=== PATIENT | female | born 1930 | race Asian ===

== ENCOUNTER 2017-10-20 17:16 | Observation (INO) | payer MEDICARE, OTHER ==
[~2017-10-20] VITALS: Ht 154.9 cm; Wt 43.7 kg
[2017-10-20] MEDS ORDERED: INSU100V8 SQ (18:07)
[2017-10-20] MEDS ORDERED: AMLO5TAB2 PO (18:09)
[2017-10-20] MEDS ORDERED: OMEP10CA4 PO (18:09)
[2017-10-20] MEDS ORDERED: CLOP75TA52 PO (18:09)
[2017-10-20 18:11] LABS: BASOPHILS # (AUTO) 0.03 x10^3/uL (0-0.1); BASOPHILS % (AUTO) 1 % (0-1); EOSINOPHILS # (AUTO) 0.03 x10^3/uL (0-0.4); EOSINOPHILS % (AUTO) 1 % (1-7); LYMPHOCYTES # (AUTO) 1.85 x10^3/uL (1-3.4); LYMPHOCYTES % (AUTO) 32 % (22-44); MD NO; MEAN CORPUSCULAR HEMOGLOBIN 30.9 pg (27.0-34.8); MEAN CORPUSCULAR HGB CONC 33.6 g/dL (32.4-35.8); MEAN CORPUSCULAR VOLUME 92.1 fL (80-100); MEAN PLATELET VOLUME 10.5 fL (7.4-10.4); MONOCYTES # (AUTO) 0.35 x10^3/uL (0.2-0.8); MONOCYTES % (AUTO) 6 % (2-9); NEUTROPHILS # (AUTO) 3.61 x10^3/uL (1.8-6.8); NEUTROPHILS % (AUTO) 62 % (42-75); PLATELET COUNT 133 x10^3/uL (130-400); RED BLOOD COUNT 4.49 x10^6/uL (3.82-5.3); RED CELL DISTRIBUTION WIDTH 13.9 % (9.6-15.2)
[2017-10-20 18:22] LABS: ALBUMIN 3.9 g/dL (3.4-5.0); ANION GAP 8 mmol/L (5-15); CALCIUM 9.3 mg/dL (8.5-10.1); CHLORIDE 109 mmol/L (98-107); CREATININE 0.88 mg/dL (0.55-1.02)
[2017-10-20 18:23] LABS: ACETAMINOPHEN < 2 mcg/mL (10-30); SALICYLATE LEVEL < 1.7 mg/dL (2.8-20.0)
[2017-10-20 20:24] LABS: MICROSCOPIC NOT IND
[2017-10-20 20:28] LABS: CULTURE INDICATED? YES
[2017-10-20] MEDS ORDERED: ONDANSETRON ODT 4 MG PO PRN (20:30)
[2017-10-20] MEDS ORDERED: DIPHENHYDRAMINE 50 MG CAPSULE PO PRN (20:30)
[2017-10-20] MEDS ORDERED: TEMAZEPAM 15 MG CAPSULE PO PRN (20:30)
[2017-10-20] MEDS ORDERED: HALOPERIDOL 5 MG TABLET PO PRN (20:30)
[2017-10-20] MEDS ORDERED: DOCUSATE 100 MG CAPSULE PO PRN (20:30)
[2017-10-20 20:34] LABS: AMPHETAMINE SCREEN, URINE Negative (Negative); BARBITURATE SCREEN, URINE Negative (Negative); BENZODIAZEPINE SCREEN, URINE Negative (Negative); CANNABINOID SCREEN, URINE Negative (Negative); COCAINE SCREEN, URINE Negative (Negative); METHADONE SCREEN, URINE Negative (Negative); OPIATE SCREEN, URINE Negative (Negative)
[2017-10-21] MEDS: NITROFURANTOIN (MACROBID) 100 MG CAPSULE PO SCH ×2 (00:12→08:03)
[2017-10-21 05:06] LABS: BASOPHILS # (AUTO) 0.03 x10^3/uL (0-0.1); BASOPHILS % (AUTO) 1 % (0-1); EOSINOPHILS # (AUTO) 0.06 x10^3/uL (0-0.4); EOSINOPHILS % (AUTO) 1 % (1-7); LYMPHOCYTES % (AUTO) 37 % (22-44); MD NO; MEAN CORPUSCULAR HEMOGLOBIN 31.3 pg (27.0-34.8); MEAN CORPUSCULAR HGB CONC 34.2 g/dL (32.4-35.8); MEAN CORPUSCULAR VOLUME 91.5 fL (80-100); MEAN PLATELET VOLUME 10.3 fL (7.4-10.4); MONOCYTES # (AUTO) 0.32 x10^3/uL (0.2-0.8); MONOCYTES % (AUTO) 6 % (2-9); NEUTROPHILS # (AUTO) 3.12 x10^3/uL (1.8-6.8); NEUTROPHILS % (AUTO) 55 % (42-75); PLATELET COUNT 126 x10^3/uL (130-400); RED BLOOD COUNT 4.22 x10^6/uL (3.82-5.3); RED CELL DISTRIBUTION WIDTH 14.1 % (9.6-15.2)
[2017-10-21 05:16] LABS: ANION GAP 8 mmol/L (5-15); CALCIUM 8.7 mg/dL (8.5-10.1); CHLORIDE 105 mmol/L (98-107)
[2017-10-21 05:18] LABS: CREATININE 0.68 mg/dL (0.55-1.02)
[2017-10-21] MEDS ORDERED: NITROFURANTOIN (MACROBID) 100 MG CAPSULE ONE ×2 (07:57→20:41)
[2017-10-21] MEDS ORDERED: OMEPRAZOLE 20 MG CAPSULE.DR ONE (07:57)
[2017-10-21] MEDS ORDERED: CLOPIDOGREL 75 MG TABLET ONE (07:57)
[2017-10-21] MEDS ORDERED: AMLODIPINE 5 MG TABLET ONE (07:57)
[2017-10-21] MEDS: AMLODIPINE 5 MG TABLET PO SCH (08:02)
[2017-10-21] MEDS: CLOPIDOGREL 75 MG TABLET PO SCH (08:03)
[2017-10-21] MEDS: OMEPRAZOLE 10 MG CAPSULE.DR PO SCH (08:33)
[2017-10-21] MEDS ORDERED: INSULIN REGULAR 100 UNITS/ML, 3ML VIAL ONE (13:22)
[2017-10-21] MEDS: INSULIN LISPRO 100 UNITS/ML, PEN SQ-INSULIN SCH ×2 (13:26→21:46)
[2017-10-22] MEDS: INSULIN LISPRO 100 UNITS/ML, PEN SQ-INSULIN SCH ×4 (07:00→20:18)
[2017-10-22] MEDS ORDERED: NITROFURANTOIN (MACROBID) 100 MG CAPSULE ONE (07:42)
[2017-10-22] MEDS ORDERED: AMLODIPINE 5 MG TABLET ONE (07:42)
[2017-10-22] MEDS ORDERED: CLOPIDOGREL 75 MG TABLET ONE (07:43)
[2017-10-22] MEDS ORDERED: OMEPRAZOLE 20 MG CAPSULE.DR ONE (07:43)
[2017-10-22] MEDS: NITROFURANTOIN (MACROBID) 100 MG CAPSULE PO SCH ×3 (09:00→20:22)
[2017-10-22] MEDS: AMLODIPINE 5 MG TABLET PO SCH (09:35)
[2017-10-22] MEDS: OMEPRAZOLE 10 MG CAPSULE.DR PO SCH (09:35)
[2017-10-22] MEDS: CLOPIDOGREL 75 MG TABLET PO SCH (09:35)
[2017-10-22 20:24] VITALS: BP 141/68
[2017-10-22 21:14] VITALS: BP 141/68
[2017-10-23 01:57] VITALS: BP 150/61
[2017-10-23 06:26] VITALS: BP 117/61
[2017-10-23] MEDS: INSULIN LISPRO 100 UNITS/ML, PEN SQ-INSULIN SCH ×4 (07:00→20:16)
[2017-10-23] MEDS: CLOPIDOGREL 75 MG TABLET PO SCH (09:09)
[2017-10-23] MEDS: OMEPRAZOLE 10 MG CAPSULE.DR PO SCH (09:09)
[2017-10-23] MEDS: NITROFURANTOIN (MACROBID) 100 MG CAPSULE PO SCH ×2 (09:09→20:14)
[2017-10-23] MEDS: AMLODIPINE 5 MG TABLET PO SCH (09:09)
[2017-10-23] MEDS: ACETAMINOPHEN 325 MG TABLET PO PRN (10:05)
[2017-10-23] MEDS: ENOXAPARIN 40 MG/0.4 ML SQ SCH (11:14)
[2017-10-23 11:42] LABS: ANION GAP 6 mmol/L (5-15); CALCIUM 8.6 mg/dL (8.5-10.1); CHLORIDE 105 mmol/L (98-107); CREATININE 0.77 mg/dL (0.55-1.02)
[2017-10-23 12:08] LABS: FOLATE LEVEL 15.6 ng/mL (3.1-17.5); THYROID STIMULATING HORMONE 0.892 mIU/L (0.358-3.740)
[2017-10-23 13:00] VITALS: BP 108/40
[2017-10-23] MEDS ORDERED: POTASSIUM CHLORIDE 20 MEQ TAB.ER.PRT PO ONE (14:00)
[2017-10-23 19:54] VITALS: BP 124/67
[2017-10-24 01:28] VITALS: BP 109/61
[2017-10-24 06:35] VITALS: BP 106/61
[2017-10-24] MEDS: INSULIN LISPRO 100 UNITS/ML, PEN SQ-INSULIN SCH ×4 (07:00→21:14)
[2017-10-24] MEDS: AMLODIPINE 5 MG TABLET PO SCH (07:35)
[2017-10-24] MEDS: NITROFURANTOIN (MACROBID) 100 MG CAPSULE PO SCH ×2 (08:20→21:13)
[2017-10-24] MEDS: OMEPRAZOLE 10 MG CAPSULE.DR PO SCH (08:20)
[2017-10-24] MEDS: CLOPIDOGREL 75 MG TABLET PO SCH (08:20)
[2017-10-24] MEDS: ENOXAPARIN 40 MG/0.4 ML SQ SCH (11:43)
[2017-10-24 12:50] VITALS: BP 109/61
[2017-10-24 19:33] VITALS: BP 104/66
[2017-10-25 01:40] VITALS: BP 105/62
[2017-10-25] MEDS: INSULIN LISPRO 100 UNITS/ML, PEN SQ-INSULIN SCH ×4 (07:00→21:01)
[2017-10-25] MEDS: AMLODIPINE 5 MG TABLET PO SCH (07:32)
[2017-10-25 07:52] VITALS: BP 105/62
[2017-10-25] MEDS: OMEPRAZOLE 10 MG CAPSULE.DR PO SCH (09:29)
[2017-10-25] MEDS: CLOPIDOGREL 75 MG TABLET PO SCH (09:29)
[2017-10-25] MEDS: NITROFURANTOIN (MACROBID) 100 MG CAPSULE PO SCH ×2 (09:29→21:00)
[2017-10-25] MEDS: ENOXAPARIN 40 MG/0.4 ML SQ SCH (11:37)
[2017-10-25 13:06] VITALS: BP 94/54
[2017-10-25 19:07] VITALS: BP 112/59
[2017-10-26 01:43] VITALS: BP 124/78
[2017-10-26 05:47] LABS: CHLORIDE 107 mmol/L (98-107)
[2017-10-26 05:51] LABS: ANION GAP 7 mmol/L (5-15); CREATININE 0.64 mg/dL (0.55-1.02)
[2017-10-26 06:26] LABS: HEMOGLOBIN A1C 7.6 % (4.2-6.3)
[2017-10-26 07:25] VITALS: BP 92/52
[2017-10-26] MEDS: INSULIN LISPRO 100 UNITS/ML, PEN SQ-INSULIN SCH ×4 (08:00→20:41)
[2017-10-26] MEDS: NITROFURANTOIN (MACROBID) 100 MG CAPSULE PO SCH ×2 (10:43→20:41)
[2017-10-26] MEDS: CLOPIDOGREL 75 MG TABLET PO SCH (10:43)
[2017-10-26] MEDS: AMLODIPINE 5 MG TABLET PO SCH (10:43)
[2017-10-26] MEDS: OMEPRAZOLE 10 MG CAPSULE.DR PO SCH (10:43)
[2017-10-26] MEDS: ENOXAPARIN 40 MG/0.4 ML SQ SCH (10:43)
[2017-10-26 12:17] VITALS: BP 98/56
[2017-10-26 18:42] VITALS: BP 125/65
[2017-10-26] MEDS: ATORVASTATIN 10 MG TABLET PO SCH (20:41)
[2017-10-27 07:10] VITALS: BP 106/58
[2017-10-27] MEDS: INSULIN LISPRO 100 UNITS/ML, PEN SQ-INSULIN SCH ×4 (08:00→20:40)
[2017-10-27] MEDS: NITROFURANTOIN (MACROBID) 100 MG CAPSULE PO SCH (10:41)
[2017-10-27] MEDS: ENOXAPARIN 40 MG/0.4 ML SQ SCH (10:41)
[2017-10-27] MEDS: AMLODIPINE 5 MG TABLET PO SCH (10:41)
[2017-10-27] MEDS: CLOPIDOGREL 75 MG TABLET PO SCH (10:41)
[2017-10-27] MEDS: OMEPRAZOLE 10 MG CAPSULE.DR PO SCH (10:41)
[2017-10-27 12:42] VITALS: BP 160/62
[2017-10-27 19:58] VITALS: BP 90/55
[2017-10-27] MEDS: INSULIN GLARGINE 100 UNITS/ML, PEN SQ-INSULIN SCH (20:41)
[2017-10-27] MEDS: ATORVASTATIN 10 MG TABLET PO SCH (20:46)
[2017-10-27] MEDS ORDERED: NITROFURANTOIN (MACROBID) 100 MG CAPSULE PO SCH (21:00)
[2017-10-28 04:32] VITALS: BP 127/73
[2017-10-28] MEDS: INSULIN LISPRO 100 UNITS/ML, PEN SQ-INSULIN SCH ×4 (07:50→20:36)
[2017-10-28] MEDS: AMLODIPINE 5 MG TABLET PO SCH (07:54)
[2017-10-28] MEDS: OMEPRAZOLE 10 MG CAPSULE.DR PO SCH (07:54)
[2017-10-28] MEDS: CLOPIDOGREL 75 MG TABLET PO SCH (07:55)
[2017-10-28 07:58] VITALS: BP 150/54
[2017-10-28] MEDS: ENOXAPARIN 40 MG/0.4 ML SQ SCH (13:00)
[2017-10-28 14:21] VITALS: BP 101/59
[2017-10-28 18:28] VITALS: BP 99/54
[2017-10-28] MEDS: ATORVASTATIN 10 MG TABLET PO SCH (20:37)
[2017-10-28] MEDS: INSULIN GLARGINE 100 UNITS/ML, PEN SQ-INSULIN SCH (21:30)
[2017-10-29 01:42] VITALS: BP 131/75
[2017-10-29] MEDS: INSULIN LISPRO 100 UNITS/ML, PEN SQ-INSULIN SCH ×4 (07:00→20:16)
[2017-10-29 07:40] VITALS: BP 112/69
[2017-10-29] MEDS: OMEPRAZOLE 10 MG CAPSULE.DR PO SCH (07:51)
[2017-10-29] MEDS: AMLODIPINE 5 MG TABLET PO SCH (07:51)
[2017-10-29] MEDS: CLOPIDOGREL 75 MG TABLET PO SCH (07:51)
[2017-10-29] MEDS: ENOXAPARIN 40 MG/0.4 ML SQ SCH (11:47)
[2017-10-29 14:01] VITALS: BP 92/50
[2017-10-29 18:37] VITALS: BP 98/59
[2017-10-29] MEDS: ATORVASTATIN 10 MG TABLET PO SCH (20:17)
[2017-10-29] MEDS: INSULIN GLARGINE 100 UNITS/ML, PEN SQ-INSULIN SCH (22:05)
[2017-10-30 01:21] VITALS: BP 101/62
[2017-10-30 06:54] VITALS: BP 90/53
[2017-10-30] MEDS: INSULIN LISPRO 100 UNITS/ML, PEN SQ-INSULIN SCH ×4 (08:29→20:23)
[2017-10-30] MEDS: AMLODIPINE 5 MG TABLET PO SCH (08:35)
[2017-10-30] MEDS: CLOPIDOGREL 75 MG TABLET PO SCH (08:35)
[2017-10-30] MEDS: ACETAMINOPHEN 325 MG TABLET PO PRN (08:35)
[2017-10-30] MEDS: ENOXAPARIN 40 MG/0.4 ML SQ SCH (08:35)
[2017-10-30] MEDS: OMEPRAZOLE 10 MG CAPSULE.DR PO SCH (08:35)
[2017-10-30 14:36] VITALS: BP 94/54
[2017-10-30 18:47] VITALS: BP 91/55
[2017-10-30] MEDS: ATORVASTATIN 10 MG TABLET PO SCH (21:06)
[2017-10-30] MEDS: INSULIN GLARGINE 100 UNITS/ML, PEN SQ-INSULIN SCH (21:07)
[2017-10-31 00:14] VITALS: BP 109/54
[2017-10-31 07:10] VITALS: BP 121/63
[2017-10-31] MEDS: INSULIN LISPRO 100 UNITS/ML, PEN SQ-INSULIN SCH ×4 (07:35→20:32)
[2017-10-31] MEDS: CLOPIDOGREL 75 MG TABLET PO SCH (08:59)
[2017-10-31] MEDS: OMEPRAZOLE 10 MG CAPSULE.DR PO SCH (08:59)
[2017-10-31] MEDS: ENOXAPARIN 40 MG/0.4 ML SQ SCH (08:59)
[2017-10-31] MEDS: AMLODIPINE 5 MG TABLET PO SCH (09:00)
[2017-10-31 13:07] VITALS: BP 102/61
[2017-10-31 20:10] VITALS: BP 102/62
[2017-10-31] MEDS: INSULIN GLARGINE 100 UNITS/ML, PEN SQ-INSULIN SCH (20:33)
[2017-10-31] MEDS: ATORVASTATIN 10 MG TABLET PO SCH (20:33)
[2017-11-01 00:51] VITALS: BP 115/67
[2017-11-01] MEDS: INSULIN LISPRO 100 UNITS/ML, PEN SQ-INSULIN SCH ×4 (07:00→20:44)
[2017-11-01 07:32] VITALS: BP 110/60
[2017-11-01] MEDS: CLOPIDOGREL 75 MG TABLET PO SCH (07:50)
[2017-11-01] MEDS: OMEPRAZOLE 10 MG CAPSULE.DR PO SCH (07:50)
[2017-11-01] MEDS: AMLODIPINE 5 MG TABLET PO SCH (07:50)
[2017-11-01] MEDS: ENOXAPARIN 40 MG/0.4 ML SQ SCH (11:00)
[2017-11-01 13:29] VITALS: BP 114/65
[2017-11-01 19:14] VITALS: BP 96/56
[2017-11-01] MEDS: ATORVASTATIN 10 MG TABLET PO SCH (20:43)
[2017-11-01] MEDS: INSULIN GLARGINE 100 UNITS/ML, PEN SQ-INSULIN SCH (20:44)
[2017-11-02 01:09] VITALS: BP 99/54
[2017-11-02 06:40] VITALS: BP 127/71
[2017-11-02] MEDS: CLOPIDOGREL 75 MG TABLET PO SCH (08:32)
[2017-11-02] MEDS: AMLODIPINE 5 MG TABLET PO SCH (08:32)
[2017-11-02] MEDS: OMEPRAZOLE 10 MG CAPSULE.DR PO SCH (08:32)
[2017-11-02] MEDS: INSULIN LISPRO 100 UNITS/ML, PEN SQ-INSULIN SCH ×4 (08:32→20:39)
[2017-11-02 12:10] VITALS: BP 110/58
[2017-11-02] MEDS: ENOXAPARIN 40 MG/0.4 ML SQ SCH (13:33)
[2017-11-02 19:30] VITALS: BP 100/32
[2017-11-02 19:31] VITALS: BP 83/43
[2017-11-02] MEDS: ATORVASTATIN 10 MG TABLET PO SCH (20:30)
[2017-11-02] MEDS: INSULIN GLARGINE 100 UNITS/ML, PEN SQ-INSULIN SCH (20:40)
[2017-11-03 01:02] VITALS: BP 91/50
[2017-11-03 07:38] VITALS: BP 94/58
[2017-11-03] MEDS: INSULIN LISPRO 100 UNITS/ML, PEN SQ-INSULIN SCH ×4 (08:46→20:00)
[2017-11-03] MEDS: OMEPRAZOLE 10 MG CAPSULE.DR PO SCH (08:46)
[2017-11-03] MEDS: AMLODIPINE 5 MG TABLET PO SCH (08:46)
[2017-11-03] MEDS: CLOPIDOGREL 75 MG TABLET PO SCH (08:46)
[2017-11-03] MEDS: ENOXAPARIN 40 MG/0.4 ML SQ SCH (12:18)
[2017-11-03 12:26] VITALS: BP 98/60
[2017-11-03 18:42] VITALS: BP 128/63
[2017-11-03] MEDS: INSULIN GLARGINE 100 UNITS/ML, PEN SQ-INSULIN SCH (19:59)
[2017-11-03] MEDS: ATORVASTATIN 10 MG TABLET PO SCH (19:59)
[2017-11-04 03:50] VITALS: BP 117/50
[2017-11-04 06:45] VITALS: BP 95/55
[2017-11-04] MEDS: INSULIN LISPRO 100 UNITS/ML, PEN SQ-INSULIN SCH ×4 (09:12→20:27)
[2017-11-04] MEDS: OMEPRAZOLE 10 MG CAPSULE.DR PO SCH (09:12)
[2017-11-04] MEDS: CLOPIDOGREL 75 MG TABLET PO SCH (09:12)
[2017-11-04] MEDS: AMLODIPINE 5 MG TABLET PO SCH (11:39)
[2017-11-04] MEDS: ENOXAPARIN 40 MG/0.4 ML SQ SCH (11:39)
[2017-11-04 13:00] VITALS: BP 108/58
[2017-11-04 19:20] VITALS: BP 108/59
[2017-11-04] MEDS: ATORVASTATIN 10 MG TABLET PO SCH (20:25)
[2017-11-04] MEDS: INSULIN GLARGINE 100 UNITS/ML, PEN SQ-INSULIN SCH (20:26)
[2017-11-05 00:50] VITALS: BP 118/63
[2017-11-05 08:29] VITALS: BP 104/64
[2017-11-05] MEDS: AMLODIPINE 5 MG TABLET PO SCH (08:50)
[2017-11-05] MEDS: OMEPRAZOLE 10 MG CAPSULE.DR PO SCH (08:51)
[2017-11-05] MEDS: CLOPIDOGREL 75 MG TABLET PO SCH (08:51)
[2017-11-05] MEDS: INSULIN LISPRO 100 UNITS/ML, PEN SQ-INSULIN SCH ×4 (08:52→21:00)
[2017-11-05 09:01] LABS: ALANINE AMINOTRANSFERASE 30 U/L (12-78); ALBUMIN 3.6 g/dL (3.4-5.0); ANION GAP 8 mmol/L (5-15); CALCIUM 9.1 mg/dL (8.5-10.1); CHLORIDE 110 mmol/L (98-107)
[2017-11-05 09:04] LABS: ALKALINE PHOSPHATASE 69 U/L (45-117); BILIRUBIN,TOTAL 0.5 mg/dL (0.2-1.0); CREATININE 0.84 mg/dL (0.55-1.02); TOTAL PROTEIN 7.8 g/dL (6.4-8.2)
[2017-11-05 10:06] LABS: MICROSCOPIC AUTO
[2017-11-05 10:08] LABS: CULTURE INDICATED? YES
[2017-11-05] MEDS: ENOXAPARIN 40 MG/0.4 ML SQ SCH (11:58)
[2017-11-05] MEDS ORDERED: FLUCONAZOLE 100 MG TABLET PO ONE (12:00)
[2017-11-05 12:36] VITALS: BP 136/66
[2017-11-05 19:25] VITALS: BP 102/59
[2017-11-05] MEDS: ATORVASTATIN 10 MG TABLET PO SCH (21:04)
[2017-11-05] MEDS: INSULIN GLARGINE 100 UNITS/ML, PEN SQ-INSULIN SCH (21:05)
[2017-11-06 02:39] VITALS: BP 102/57
[2017-11-06] MEDS: INSULIN LISPRO 100 UNITS/ML, PEN SQ-INSULIN SCH ×4 (07:00→20:40)
[2017-11-06 07:20] VITALS: BP 104/59
[2017-11-06] MEDS: CLOPIDOGREL 75 MG TABLET PO SCH (11:20)
[2017-11-06] MEDS: OMEPRAZOLE 10 MG CAPSULE.DR PO SCH (11:20)
[2017-11-06] MEDS: ENOXAPARIN 40 MG/0.4 ML SQ SCH (11:20)
[2017-11-06] MEDS: AMLODIPINE 5 MG TABLET PO SCH (11:20)
[2017-11-06 16:27] VITALS: BP 114/55
[2017-11-06 18:52] VITALS: BP 109/58
[2017-11-06] MEDS: ATORVASTATIN 10 MG TABLET PO SCH (20:40)
[2017-11-06] MEDS: INSULIN GLARGINE 100 UNITS/ML, PEN SQ-INSULIN SCH (20:45)
[2017-11-06] MEDS: ACETAMINOPHEN 325 MG TABLET PO PRN (20:53)
[2017-11-07 01:04] VITALS: BP 99/54
[2017-11-07 06:55] VITALS: BP 91/54
[2017-11-07] MEDS: INSULIN LISPRO 100 UNITS/ML, PEN SQ-INSULIN SCH ×4 (07:00→21:04)
[2017-11-07 08:30] LABS: BASOPHILS # (AUTO) 0.03 x10^3/uL (0-0.1); BASOPHILS % (AUTO) 1 % (0-1); EOSINOPHILS # (AUTO) 0.16 x10^3/uL (0-0.4); EOSINOPHILS % (AUTO) 3 % (1-7); LYMPHOCYTES % (AUTO) 37 % (22-44); MD NO; MEAN CORPUSCULAR HEMOGLOBIN 30.6 pg (27.0-34.8); MEAN CORPUSCULAR HGB CONC 33.4 g/dL (32.4-35.8); MEAN CORPUSCULAR VOLUME 91.7 fL (80-100); MEAN PLATELET VOLUME 10.8 fL (7.4-10.4); MONOCYTES # (AUTO) 0.32 x10^3/uL (0.2-0.8); MONOCYTES % (AUTO) 7 % (2-9); NEUTROPHILS # (AUTO) 2.53 x10^3/uL (1.8-6.8); NEUTROPHILS % (AUTO) 52 % (42-75); PLATELET COUNT 112 x10^3/uL (130-400); RED BLOOD COUNT 4.36 x10^6/uL (3.82-5.3); RED CELL DISTRIBUTION WIDTH 14.6 % (9.6-15.2)
[2017-11-07] MEDS: AMLODIPINE 5 MG TABLET PO SCH (09:00)
[2017-11-07] MEDS: CLOPIDOGREL 75 MG TABLET PO SCH (09:44)
[2017-11-07] MEDS: OMEPRAZOLE 10 MG CAPSULE.DR PO SCH (09:44)
[2017-11-07 13:59] VITALS: BP 93/56
[2017-11-07] MEDS: ENOXAPARIN 40 MG/0.4 ML SQ SCH (14:03)
[2017-11-07 19:08] VITALS: BP 120/65
[2017-11-07] MEDS: ATORVASTATIN 10 MG TABLET PO SCH (20:56)
[2017-11-07] MEDS: INSULIN GLARGINE 100 UNITS/ML, PEN SQ-INSULIN SCH (21:04)
[2017-11-08 01:16] VITALS: BP 114/62
[2017-11-08] MEDS: INSULIN LISPRO 100 UNITS/ML, PEN SQ-INSULIN SCH ×4 (07:00→20:14)
[2017-11-08 08:29] VITALS: BP 120/66
[2017-11-08] MEDS: CLOPIDOGREL 75 MG TABLET PO SCH (10:42)
[2017-11-08] MEDS: OMEPRAZOLE 10 MG CAPSULE.DR PO SCH (10:42)
[2017-11-08] MEDS: ENOXAPARIN 40 MG/0.4 ML SQ SCH (10:42)
[2017-11-08] MEDS: AMLODIPINE 5 MG TABLET PO SCH (10:42)
[2017-11-08 15:00] VITALS: BP 119/69
[2017-11-08] MEDS ORDERED: PHENAZOPYRIDINE 100 MG TABLET PO PRN (17:30)
[2017-11-08 19:04] VITALS: BP 91/52
[2017-11-08] MEDS: ATORVASTATIN 10 MG TABLET PO SCH (19:57)
[2017-11-08] MEDS: INSULIN GLARGINE 100 UNITS/ML, PEN SQ-INSULIN SCH (20:13)
[2017-11-09 01:16] VITALS: BP 97/53
[2017-11-09] MEDS: INSULIN LISPRO 100 UNITS/ML, PEN SQ-INSULIN SCH ×4 (07:00→20:06)
[2017-11-09 07:54] VITALS: BP 122/60
[2017-11-09] MEDS: CLOPIDOGREL 75 MG TABLET PO SCH (09:06)
[2017-11-09] MEDS: AMLODIPINE 5 MG TABLET PO SCH (09:06)
[2017-11-09] MEDS: OMEPRAZOLE 10 MG CAPSULE.DR PO SCH (09:06)
[2017-11-09 13:34] VITALS: BP 130/64
[2017-11-09] MEDS: ENOXAPARIN 40 MG/0.4 ML SQ SCH (14:05)
[2017-11-09 19:16] VITALS: BP 108/59
[2017-11-09] MEDS: ATORVASTATIN 10 MG TABLET PO SCH (20:05)
[2017-11-09] MEDS: INSULIN GLARGINE 100 UNITS/ML, PEN SQ-INSULIN SCH (20:13)
[2017-11-10] VITALS: BP 100/56
[2017-11-10 07:35] VITALS: BP 85/46
[2017-11-10] MEDS: AMLODIPINE 5 MG TABLET PO SCH (09:00)
[2017-11-10] MEDS: INSULIN LISPRO 100 UNITS/ML, PEN SQ-INSULIN SCH ×4 (10:58→20:05)
[2017-11-10] MEDS: OMEPRAZOLE 10 MG CAPSULE.DR PO SCH (10:58)
[2017-11-10] MEDS: ENOXAPARIN 40 MG/0.4 ML SQ SCH (10:58)
[2017-11-10] MEDS: CLOPIDOGREL 75 MG TABLET PO SCH (10:58)
[2017-11-10 13:44] VITALS: BP 120/64
[2017-11-10 19:25] VITALS: BP 100/61
[2017-11-10] MEDS: INSULIN GLARGINE 100 UNITS/ML, PEN SQ-INSULIN SCH (20:07)
[2017-11-10] MEDS: ATORVASTATIN 10 MG TABLET PO SCH (20:07)
[2017-11-11 01:52] VITALS: BP 102/52
[2017-11-11] MEDS: INSULIN LISPRO 100 UNITS/ML, PEN SQ-INSULIN SCH ×4 (07:00→19:57)
[2017-11-11 08:10] VITALS: BP 92/52
[2017-11-11] MEDS: AMLODIPINE 5 MG TABLET PO SCH (08:10)
[2017-11-11] MEDS: OMEPRAZOLE 10 MG CAPSULE.DR PO SCH (08:14)
[2017-11-11] MEDS: CLOPIDOGREL 75 MG TABLET PO SCH (08:14)
[2017-11-11 08:29] VITALS: BP 94/52
[2017-11-11] MEDS: ENOXAPARIN 40 MG/0.4 ML SQ SCH (12:31)
[2017-11-11 12:47] VITALS: BP 116/62
[2017-11-11 18:24] VITALS: BP 104/58
[2017-11-11] MEDS: ATORVASTATIN 10 MG TABLET PO SCH (19:56)
[2017-11-11] MEDS: INSULIN GLARGINE 100 UNITS/ML, PEN SQ-INSULIN SCH (19:57)
[2017-11-12 00:35] VITALS: BP 130/65
[2017-11-12 06:26] VITALS: BP 108/59
[2017-11-12] MEDS: AMLODIPINE 5 MG TABLET PO SCH (08:55)
[2017-11-12] MEDS: CLOPIDOGREL 75 MG TABLET PO SCH (09:28)
[2017-11-12] MEDS: ENOXAPARIN 40 MG/0.4 ML SQ SCH (09:28)
[2017-11-12] MEDS: INSULIN LISPRO 100 UNITS/ML, PEN SQ-INSULIN SCH ×4 (09:28→19:43)
[2017-11-12] MEDS: OMEPRAZOLE 10 MG CAPSULE.DR PO SCH (09:28)
[2017-11-12 14:47] VITALS: BP 110/62
[2017-11-12 19:33] VITALS: BP 110/51
[2017-11-12] MEDS: ATORVASTATIN 10 MG TABLET PO SCH (19:42)
[2017-11-12] MEDS: INSULIN GLARGINE 100 UNITS/ML, PEN SQ-INSULIN SCH (19:42)
[2017-11-12] MEDS: ACETAMINOPHEN 325 MG TABLET PO PRN (22:39)
[2017-11-13 01:00] VITALS: BP 122/55
[2017-11-13] MEDS: INSULIN LISPRO 100 UNITS/ML, PEN SQ-INSULIN SCH ×4 (07:00→21:41)
[2017-11-13 07:25] VITALS: BP 103/61
[2017-11-13] MEDS: AMLODIPINE 5 MG TABLET PO SCH (07:34)
[2017-11-13] MEDS: CLOPIDOGREL 75 MG TABLET PO SCH (10:32)
[2017-11-13] MEDS: OMEPRAZOLE 10 MG CAPSULE.DR PO SCH (10:32)
[2017-11-13] MEDS: ENOXAPARIN 40 MG/0.4 ML SQ SCH (10:32)
[2017-11-13 12:05] VITALS: BP 147/79
[2017-11-13 18:35] VITALS: BP 113/66
[2017-11-13] MEDS: ATORVASTATIN 10 MG TABLET PO SCH (21:37)
[2017-11-13] MEDS: INSULIN GLARGINE 100 UNITS/ML, PEN SQ-INSULIN SCH (21:41)
[2017-11-14 01:55] VITALS: BP 105/64
[2017-11-14] MEDS: INSULIN LISPRO 100 UNITS/ML, PEN SQ-INSULIN SCH ×4 (07:00→20:36)
[2017-11-14 07:17] VITALS: BP 102/61
[2017-11-14] MEDS: AMLODIPINE 5 MG TABLET PO SCH (09:46)
[2017-11-14] MEDS: OMEPRAZOLE 10 MG CAPSULE.DR PO SCH (09:46)
[2017-11-14] MEDS: CLOPIDOGREL 75 MG TABLET PO SCH (09:47)
[2017-11-14 12:48] VITALS: BP 133/71
[2017-11-14] MEDS: ENOXAPARIN 40 MG/0.4 ML SQ SCH (17:01)
[2017-11-14 19:23] VITALS: BP 92/56
[2017-11-14] MEDS: ATORVASTATIN 10 MG TABLET PO SCH (20:30)
[2017-11-14] MEDS: INSULIN GLARGINE 100 UNITS/ML, PEN SQ-INSULIN SCH (20:36)
[2017-11-15 01:37] VITALS: BP 114/65
[2017-11-15 06:53] VITALS: BP 104/62
[2017-11-15] MEDS: INSULIN LISPRO 100 UNITS/ML, PEN SQ-INSULIN SCH ×4 (07:00→19:52)
[2017-11-15] MEDS: OMEPRAZOLE 10 MG CAPSULE.DR PO SCH (10:20)
[2017-11-15] MEDS: CLOPIDOGREL 75 MG TABLET PO SCH (10:20)
[2017-11-15] MEDS: AMLODIPINE 5 MG TABLET PO SCH (10:20)
[2017-11-15 13:09] VITALS: BP 123/69
[2017-11-15] MEDS: ENOXAPARIN 40 MG/0.4 ML SQ SCH (14:48)
[2017-11-15 19:21] VITALS: BP 120/58
[2017-11-15] MEDS: ATORVASTATIN 10 MG TABLET PO SCH (19:41)
[2017-11-15] MEDS: INSULIN GLARGINE 100 UNITS/ML, PEN SQ-INSULIN SCH (19:53)
[2017-11-16 01:44] VITALS: BP 112/62
[2017-11-16 06:32] VITALS: BP 109/55
[2017-11-16] MEDS: INSULIN LISPRO 100 UNITS/ML, PEN SQ-INSULIN SCH ×4 (07:00→20:19)
[2017-11-16] MEDS: CLOPIDOGREL 75 MG TABLET PO SCH (09:05)
[2017-11-16] MEDS: AMLODIPINE 5 MG TABLET PO SCH (09:05)
[2017-11-16] MEDS: OMEPRAZOLE 10 MG CAPSULE.DR PO SCH (09:05)
[2017-11-16 12:55] VITALS: BP 101/54
[2017-11-16] MEDS: ENOXAPARIN 40 MG/0.4 ML SQ SCH (13:25)
[2017-11-16 19:49] VITALS: BP 104/56
[2017-11-16] MEDS: ATORVASTATIN 10 MG TABLET PO SCH (20:02)
[2017-11-16] MEDS: INSULIN GLARGINE 100 UNITS/ML, PEN SQ-INSULIN SCH (20:18)
[2017-11-17 01:53] VITALS: BP 111/66
[2017-11-17 07:59] VITALS: BP 140/71
[2017-11-17] MEDS: INSULIN LISPRO 100 UNITS/ML, PEN SQ-INSULIN SCH ×4 (08:19→20:28)
[2017-11-17] MEDS: OMEPRAZOLE 10 MG CAPSULE.DR PO SCH (08:19)
[2017-11-17] MEDS: CLOPIDOGREL 75 MG TABLET PO SCH (08:19)
[2017-11-17] MEDS: AMLODIPINE 5 MG TABLET PO SCH (08:31)
[2017-11-17] MEDS: ENOXAPARIN 40 MG/0.4 ML SQ SCH (13:19)
[2017-11-17 14:30] VITALS: BP 130/80
[2017-11-17 18:57] VITALS: BP 92/53
[2017-11-17] MEDS: ATORVASTATIN 10 MG TABLET PO SCH (20:17)
[2017-11-17] MEDS: INSULIN GLARGINE 100 UNITS/ML, PEN SQ-INSULIN SCH (20:29)
[2017-11-18 03:41] VITALS: BP 112/64
[2017-11-18 07:32] VITALS: BP 130/69
[2017-11-18] MEDS: INSULIN LISPRO 100 UNITS/ML, PEN SQ-INSULIN SCH ×4 (08:58→20:08)
[2017-11-18] MEDS: AMLODIPINE 5 MG TABLET PO SCH (09:12)
[2017-11-18] MEDS: OMEPRAZOLE 10 MG CAPSULE.DR PO SCH (09:12)
[2017-11-18] MEDS: CLOPIDOGREL 75 MG TABLET PO SCH (09:12)
[2017-11-18] MEDS: ENOXAPARIN 40 MG/0.4 ML SQ SCH (12:05)
[2017-11-18 14:31] VITALS: BP 111/61
[2017-11-18 19:36] VITALS: BP 115/63
[2017-11-18] MEDS: ATORVASTATIN 10 MG TABLET PO SCH (20:07)
[2017-11-18] MEDS: INSULIN GLARGINE 100 UNITS/ML, PEN SQ-INSULIN SCH (20:07)
[2017-11-19 00:53] VITALS: BP 130/72
[2017-11-19] MEDS: INSULIN LISPRO 100 UNITS/ML, PEN SQ-INSULIN SCH ×3 (07:00→16:16)
[2017-11-19 07:29] VITALS: BP 115/71
[2017-11-19] MEDS: OMEPRAZOLE 10 MG CAPSULE.DR PO SCH (08:28)
[2017-11-19] MEDS: CLOPIDOGREL 75 MG TABLET PO SCH (08:28)
[2017-11-19] MEDS: AMLODIPINE 5 MG TABLET PO SCH (08:29)
[2017-11-19] MEDS: ENOXAPARIN 30 MG/0.3 ML SQ SCH (12:57)
[2017-11-19 14:16] VITALS: BP 124/71
[2017-11-19 18:41] VITALS: BP 122/72
[2017-11-19] MEDS: ATORVASTATIN 10 MG TABLET PO SCH (20:15)
[2017-11-19] MEDS: INSULIN GLARGINE 100 UNITS/ML, PEN SQ-INSULIN SCH (20:22)
[2017-11-20 01:47] VITALS: BP 95/55
[2017-11-20 07:11] VITALS: BP 135/64
[2017-11-20] MEDS: CLOPIDOGREL 75 MG TABLET PO SCH (09:48)
[2017-11-20] MEDS: OMEPRAZOLE 10 MG CAPSULE.DR PO SCH (09:48)
[2017-11-20] MEDS: AMLODIPINE 5 MG TABLET PO SCH (09:48)
[2017-11-20] MEDS: ENOXAPARIN 30 MG/0.3 ML SQ SCH (13:00)
[2017-11-20 13:57] VITALS: BP 111/63
[2017-11-20 19:06] VITALS: BP 92/50
[2017-11-20] MEDS: INSULIN GLARGINE 100 UNITS/ML, PEN SQ-INSULIN SCH (20:53)
[2017-11-20] MEDS: ATORVASTATIN 10 MG TABLET PO SCH (20:56)
[2017-11-21 03:34] VITALS: BP 92/64
[2017-11-21 06:57] VITALS: BP 114/59
[2017-11-21] MEDS: CLOPIDOGREL 75 MG TABLET PO SCH (11:29)
[2017-11-21] MEDS: AMLODIPINE 5 MG TABLET PO SCH (11:29)
[2017-11-21] MEDS: OMEPRAZOLE 10 MG CAPSULE.DR PO SCH (11:29)
[2017-11-21] MEDS: ENOXAPARIN 30 MG/0.3 ML SQ SCH (11:55)
[2017-11-21 12:55] VITALS: BP 113/65
[2017-11-21 19:31] VITALS: BP 94/46
[2017-11-21] MEDS: INSULIN GLARGINE 100 UNITS/ML, PEN SQ-INSULIN SCH (21:00)
[2017-11-21] MEDS: ATORVASTATIN 10 MG TABLET PO SCH (21:00)
[2017-11-22 03:55] VITALS: BP 95/57
[2017-11-22 07:17] VITALS: BP 125/65
[2017-11-22] MEDS: AMLODIPINE 5 MG TABLET PO SCH (09:51)
[2017-11-22] MEDS: OMEPRAZOLE 10 MG CAPSULE.DR PO SCH (09:51)
[2017-11-22] MEDS: CLOPIDOGREL 75 MG TABLET PO SCH (09:51)
[2017-11-22 12:42] VITALS: BP 106/63
[2017-11-22] MEDS: ENOXAPARIN 30 MG/0.3 ML SQ SCH (13:00)
[2017-11-22 18:24] VITALS: BP 93/51
[2017-11-22] MEDS: ATORVASTATIN 10 MG TABLET PO SCH (20:14)
[2017-11-22] MEDS: INSULIN GLARGINE 100 UNITS/ML, PEN SQ-INSULIN SCH (20:14)
[2017-11-23] VITALS (7 sets, daily range): BP systolic 85–117; BP diastolic 44–64
[2017-11-23] MEDS: AMLODIPINE 5 MG TABLET PO SCH (09:00)
[2017-11-23] MEDS: CLOPIDOGREL 75 MG TABLET PO SCH (09:21)
[2017-11-23] MEDS: OMEPRAZOLE 10 MG CAPSULE.DR PO SCH (09:21)
[2017-11-23] MEDS: ENOXAPARIN 30 MG/0.3 ML SQ SCH (13:16)
[2017-11-23] MEDS: metFORMIN 500 MG TABLET PO SCH (18:07)
[2017-11-23] MEDS: ATORVASTATIN 10 MG TABLET PO SCH (19:51)
[2017-11-23] MEDS: ACETAMINOPHEN 325 MG TABLET PO PRN (21:11)
[2017-11-24 06:03] LABS: ANION GAP 9 mmol/L (5-15); CALCIUM 9.3 mg/dL (8.5-10.1); CHLORIDE 108 mmol/L (98-107)
[2017-11-24 06:06] LABS: CREATININE 0.98 mg/dL (0.55-1.02)
[2017-11-24 07:46] VITALS: BP 119/65
[2017-11-24] MEDS: OMEPRAZOLE 10 MG CAPSULE.DR PO SCH (09:00)
[2017-11-24] MEDS: AMLODIPINE 5 MG TABLET PO SCH (09:00)
[2017-11-24] MEDS: metFORMIN 500 MG TABLET PO SCH ×2 (10:23→17:08)
[2017-11-24] MEDS: CLOPIDOGREL 75 MG TABLET PO SCH (10:23)
[2017-11-24] MEDS: ENOXAPARIN 30 MG/0.3 ML SQ SCH (11:31)
[2017-11-24 13:05] VITALS: BP 113/58
[2017-11-24 18:32] VITALS: BP 104/55
[2017-11-24] MEDS: ATORVASTATIN 10 MG TABLET PO SCH (19:32)
[2017-11-25] MEDS: OMEPRAZOLE 10 MG CAPSULE.DR PO SCH (08:58)
[2017-11-25] MEDS: AMLODIPINE 5 MG TABLET PO SCH (08:58)
[2017-11-25] MEDS: metFORMIN 500 MG TABLET PO SCH ×2 (10:18→17:42)
[2017-11-25] MEDS: CLOPIDOGREL 75 MG TABLET PO SCH (10:18)
[2017-11-25] MEDS: ENOXAPARIN 30 MG/0.3 ML SQ SCH (11:39)
[2017-11-25 13:26] VITALS: BP 96/60
[2017-11-25] MEDS: ATORVASTATIN 10 MG TABLET PO SCH (19:40)
[2017-11-25 19:44] VITALS: BP 101/52
[2017-11-26 06:31] VITALS: BP 96/64
[2017-11-26] MEDS: metFORMIN 500 MG TABLET PO SCH ×2 (08:09→17:03)
[2017-11-26] MEDS: AMLODIPINE 5 MG TABLET PO SCH (08:09)
[2017-11-26] MEDS: OMEPRAZOLE 10 MG CAPSULE.DR PO SCH (08:09)
[2017-11-26] MEDS: CLOPIDOGREL 75 MG TABLET PO SCH (08:09)
[2017-11-26] MEDS: ENOXAPARIN 30 MG/0.3 ML SQ SCH (12:21)
[2017-11-26 13:38] VITALS: BP 94/57
[2017-11-26 19:10] VITALS: BP 99/77
[2017-11-26] MEDS: ATORVASTATIN 10 MG TABLET PO SCH (19:34)
[2017-11-27 00:36] VITALS: BP 94/55
[2017-11-27 06:38] VITALS: BP 102/59
[2017-11-27] MEDS: AMLODIPINE 5 MG TABLET PO SCH (08:22)
[2017-11-27] MEDS: CLOPIDOGREL 75 MG TABLET PO SCH (08:23)
[2017-11-27] MEDS: metFORMIN 500 MG TABLET PO SCH ×2 (08:24→17:56)
[2017-11-27] MEDS: OMEPRAZOLE 10 MG CAPSULE.DR PO SCH (08:32)
[2017-11-27 11:22] LABS: ANION GAP 8 mmol/L (5-15); CALCIUM 9.9 mg/dL (8.5-10.1); CHLORIDE 103 mmol/L (98-107); CREATININE 0.88 mg/dL (0.55-1.02)
[2017-11-27 12:42] VITALS: BP 90/58
[2017-11-27] MEDS: ENOXAPARIN 30 MG/0.3 ML SQ SCH (13:00)
[2017-11-27 18:44] VITALS: BP 116/64
[2017-11-27] MEDS: ATORVASTATIN 10 MG TABLET PO SCH (19:26)
[2017-11-28 02:24] VITALS: BP 97/49
[2017-11-28 06:42] VITALS: BP 102/46
[2017-11-28] MEDS: CLOPIDOGREL 75 MG TABLET PO SCH (07:27)
[2017-11-28] MEDS: metFORMIN 500 MG TABLET PO SCH ×2 (07:27→17:39)
[2017-11-28] MEDS: OMEPRAZOLE 10 MG CAPSULE.DR PO SCH (07:27)
[2017-11-28] MEDS: AMLODIPINE 5 MG TABLET PO SCH (07:29)
[2017-11-28 12:42] VITALS: BP 108/55
[2017-11-28] MEDS: ENOXAPARIN 30 MG/0.3 ML SQ SCH (12:59)
[2017-11-28 18:57] VITALS: BP 98/59
[2017-11-28] MEDS: ATORVASTATIN 10 MG TABLET PO SCH (19:16)
[2017-11-29 01:39] VITALS: BP 91/52
[2017-11-29 07:33] VITALS: BP 97/57
[2017-11-29] MEDS: AMLODIPINE 5 MG TABLET PO SCH (09:00)
[2017-11-29] MEDS: CLOPIDOGREL 75 MG TABLET PO SCH (09:05)
[2017-11-29] MEDS: OMEPRAZOLE 10 MG CAPSULE.DR PO SCH (09:05)
[2017-11-29] MEDS: metFORMIN 500 MG TABLET PO SCH ×2 (09:05→17:33)
[2017-11-29] MEDS: ACETAMINOPHEN 325 MG TABLET PO PRN (09:12)
[2017-11-29] MEDS: ENOXAPARIN 30 MG/0.3 ML SQ SCH (12:54)
[2017-11-29 14:47] VITALS: BP 111/57
[2017-11-29] MEDS: ATORVASTATIN 10 MG TABLET PO SCH (19:27)
[2017-11-29 20:29] VITALS: BP 92/52
[2017-11-30 01:57] VITALS: BP 107/56
[2017-11-30 06:38] VITALS: BP 103/67
[2017-11-30] MEDS: AMLODIPINE 5 MG TABLET PO SCH (08:53)
[2017-11-30] MEDS: CLOPIDOGREL 75 MG TABLET PO SCH (09:08)
[2017-11-30] MEDS: metFORMIN 500 MG TABLET PO SCH ×2 (09:08→16:49)
[2017-11-30] MEDS: OMEPRAZOLE 10 MG CAPSULE.DR PO SCH (09:08)
[2017-11-30] MEDS: ENOXAPARIN 30 MG/0.3 ML SQ SCH (13:00)
[2017-11-30 14:21] VITALS: BP 94/57
[2017-11-30 18:58] VITALS: BP 114/61
[2017-11-30] MEDS: ATORVASTATIN 10 MG TABLET PO SCH (20:35)
[2017-12-01 01:24] VITALS: BP 102/61
[2017-12-01 07:23] VITALS: BP 125/66
[2017-12-01] MEDS: metFORMIN 500 MG TABLET PO SCH ×2 (08:09→17:44)
[2017-12-01] MEDS: OMEPRAZOLE 10 MG CAPSULE.DR PO SCH (08:09)
[2017-12-01] MEDS: AMLODIPINE 5 MG TABLET PO SCH (08:10)
[2017-12-01] MEDS: CLOPIDOGREL 75 MG TABLET PO SCH (08:10)
[2017-12-01 11:48] LABS: CLOSTRIDIUM DIFFICILE ANTIGEN NEGATIVE; CLOSTRIDIUM DIFFICILE TOXIN NEGATIVE (Negative)
[2017-12-01 12:25] VITALS: BP 115/63
[2017-12-01] MEDS: ENOXAPARIN 30 MG/0.3 ML SQ SCH (13:00)
[2017-12-01] MEDS ORDERED: LOPERAMIDE 2 MG CAPSULE PO PRN (14:00)
[2017-12-01 18:59] VITALS: BP 104/64
[2017-12-01] MEDS: ATORVASTATIN 10 MG TABLET PO SCH (19:48)
[2017-12-01] MEDS: SIMVASTATIN 10 MG TABLET PO SCH (19:48)
[2017-12-02 01:47] VITALS: BP 124/71
[2017-12-02] MEDS: ACETAMINOPHEN 325 MG TABLET PO PRN (03:45)
[2017-12-02 06:45] VITALS: BP 99/61
[2017-12-02] MEDS: metFORMIN 500 MG TABLET PO SCH ×2 (08:15→16:16)
[2017-12-02] MEDS: CLOPIDOGREL 75 MG TABLET PO SCH (08:15)
[2017-12-02] MEDS: OMEPRAZOLE 10 MG CAPSULE.DR PO SCH (08:15)
[2017-12-02] MEDS: ENOXAPARIN 30 MG/0.3 ML SQ SCH (13:00)
[2017-12-02 14:00] VITALS: BP 105/99
[2017-12-02 18:51] VITALS: BP 125/66
[2017-12-02] MEDS: ATORVASTATIN 10 MG TABLET PO SCH (21:33)
[2017-12-02] MEDS: SIMVASTATIN 10 MG TABLET PO SCH (21:34)
[2017-12-03 00:49] VITALS: BP 91/53
[2017-12-03 06:55] VITALS: BP 108/58
[2017-12-03] MEDS: OMEPRAZOLE 10 MG CAPSULE.DR PO SCH (07:44)
[2017-12-03] MEDS: CLOPIDOGREL 75 MG TABLET PO SCH (07:44)
[2017-12-03] MEDS: metFORMIN 500 MG TABLET PO SCH ×2 (07:44→17:24)
[2017-12-03] MEDS: ENOXAPARIN 30 MG/0.3 ML SQ SCH (13:00)
[2017-12-03 13:45] VITALS: BP 104/68
[2017-12-03] MEDS: ACETAMINOPHEN 325 MG TABLET PO PRN (17:24)
[2017-12-03 19:18] VITALS: BP 105/62
[2017-12-03] MEDS: SIMVASTATIN 10 MG TABLET PO SCH (19:44)
[2017-12-03] MEDS: ATORVASTATIN 10 MG TABLET PO SCH (19:45)
[2017-12-04 01:43] VITALS: BP 101/72
[2017-12-04] MEDS: metFORMIN 500 MG TABLET PO SCH ×3 (08:00→17:00)
[2017-12-04 08:22] VITALS: BP 103/53
[2017-12-04] MEDS: CLOPIDOGREL 75 MG TABLET PO SCH (08:26)
[2017-12-04] MEDS: OMEPRAZOLE 10 MG CAPSULE.DR PO SCH ×2 (08:26→08:31)
[2017-12-04] MEDS: ENOXAPARIN 30 MG/0.3 ML SQ SCH (13:00)
[2017-12-04 14:36] VITALS: BP 82/52
[2017-12-04 19:23] VITALS: BP 121/72
[2017-12-04] MEDS: SIMVASTATIN 10 MG TABLET PO SCH (21:24)
[2017-12-04] MEDS: ATORVASTATIN 10 MG TABLET PO SCH (21:24)
[2017-12-05 03:49] VITALS: BP 102/59
[2017-12-05 07:00] VITALS: BP 109/63
[2017-12-05] MEDS: metFORMIN 500 MG TABLET PO SCH ×2 (08:00→12:16)
[2017-12-05] MEDS: OMEPRAZOLE 10 MG CAPSULE.DR PO SCH (09:00)
[2017-12-05] MEDS: CLOPIDOGREL 75 MG TABLET PO SCH ×2 (09:00→12:16)
[2017-12-05] MEDS ORDERED: METF500T PO (10:13)
[2017-12-05] MEDS ORDERED: ATOR10TA9 PO (10:13)
[2017-12-05] MEDS: ENOXAPARIN 30 MG/0.3 ML SQ SCH (13:00)
== END 2017-12-05 17:32 ==
LOC: ED 19:15 → INTOOBSV 19:20 → EDIP 19:20 → 3NE 10-22 18:14
PROVIDERS: ADMIT Internal Medicine; ATTEND Hospitalist
DX: R45.851 Suicidal ideations (principal); F63.1 Pyromania; R45.850 Homicidal ideations; G93.41 Metabolic encephalopathy; K21.9 Gastro-esophageal reflux disease without esophagitis; F33.2 Major depressive disorder, recurrent severe without psychotic features; E11.9 Type 2 diabetes mellitus without complications; E87.6 Hypokalemia; F03.90 Unspecified dementia, unspecified severity, without behavioral disturbance, psychotic disturbance, mood disturbance, and anxiety; F09 Unspecified mental disorder due to known physiological condition; F03.91 Unspecified dementia, unspecified severity, with behavioral disturbance; I11.9 Hypertensive heart disease without heart failure; G89.29 Other chronic pain; Z79.4 Long term (current) use of insulin; Z86.73 Personal history of transient ischemic attack (TIA), and cerebral infarction without residual deficits
CPT/HCPCS: 36415; 70450; 80048; 80053; 80307; 80329; 81001; 81003; 82040; 82140; 82607; 82746; 82962; 83036; 83735; 84443; 85025; 86480; 86704; 86706; 86708; 86803; 87086; 87324; 87340; 92507; 92522; 96372; 99285; G0378; G0515; J1650; J1815; G0480

== ENCOUNTER 2018-03-21 14:35 | Inpatient (IN) | payer MEDICARE, OTHER ==
[~2018-03-21] VITALS: Ht 152.4 cm; Wt 39.4 kg
[~2018-03-21 14:35] MED LIST: AMLO5TAB2 PO; ATOR10TA9 PO; CLOP75TA52 PO; INSU100V8 SQ; METF500T PO; OMEP10CA4 PO
[2018-03-22 10:54] VITALS: BP 153/74
[2018-03-22] MEDS ORDERED: GLUCAGON 1 MG IM PRN (11:00)
[2018-03-22] MEDS ORDERED: ONDANSETRON ODT 4 MG PO PRN (11:00)
[2018-03-22] MEDS ORDERED: DEXTROSE 4 GM TAB.CHEW PO PRN (11:00)
[2018-03-22] MEDS ORDERED: PLEASE ENTER HEIGHT AND WEIGHT MC SCH (11:00)
[2018-03-22] MEDS ORDERED: DEXTROSE 50%, 50ML SYRINGE IVPush PRN (11:00)
[2018-03-22] MEDS: INSULIN REGULAR 100 UNITS/ML, 3ML VIAL SQ-INSULIN SCH ×3 (12:00→21:00)
[2018-03-22] MEDS: HEPARIN 5,000 UNITS/ML, 1ML SQ SCH ×2 (12:20→22:54)
[2018-03-22] MEDS ORDERED: HEPARIN 5,000 UNITS/ML, 1ML ONE (12:25)
[2018-03-22 13:53] VITALS: BP 153/77
[2018-03-22] MEDS: LEVOFLOXACIN 250 MG TABLET PO SCH (14:48)
[2018-03-22] MEDS: LACTOBACILLUS 1GM/ PACKET PO SCH ×3 (15:00→21:00)
[2018-03-22] MEDS: CHOLESTYRAMINE LIGHT 4GM PACKET PO SCH ×3 (15:00→21:00)
[2018-03-22] MEDS ORDERED: DOXY100C PO (15:44)
[2018-03-22] MEDS ORDERED: LEVO250T23 PO (15:44)
[2018-03-22] MEDS ORDERED: QUET25TA5 PO (15:44)
[2018-03-22] MEDS ORDERED: ACET650S21 PO (15:44)
[2018-03-22] MEDS ORDERED: LACT1TAB8 PO (15:44)
[2018-03-22 16:57] VITALS: BP 153/74
[2018-03-22] MEDS: metFORMIN 500 MG TABLET PO SCH (17:00)
[2018-03-22] MEDS: DOXYCYCLINE 100MG TABLET PO SCH ×2 (20:10→21:00)
[2018-03-22] MEDS: ATORVASTATIN 10 MG TABLET PO SCH ×2 (20:10→21:00)
[2018-03-22] MEDS: SODIUM CHLORIDE FLUSH 10ML SYR IVF SCH ×2 (20:11→21:00)
[2018-03-22] MEDS: QUETIAPINE 25MG TABLET PO SCH ×2 (20:12→21:00)
[2018-03-23 05:47] LABS: CHOLESTEROL, TOTAL 124 mg/dL (140-239); TRIGLYCERIDES 111 mg/dL (50-200); VLDL CHOLESTEROL 22 mg/dL (0-25)
[2018-03-23 06:13] LABS: CHOL/HDL RATIO 2.5; FREE T4 (FREE THYROXINE) 1.11 ng/dL (0.76-1.46); HDL CHOL % 40 % (28-40); HDL CHOLESTEROL (DIRECT) 50 mg/dL (40-60); LDL CHOLESTEROL,CALCULATED 52 mg/dL (54-169)
[2018-03-23 06:14] LABS: FOLATE LEVEL > 20.0 ng/mL (3.1-17.5)
[2018-03-23] MEDS: INSULIN REGULAR 100 UNITS/ML, 3ML VIAL SQ-INSULIN SCH ×4 (07:24→20:59)
[2018-03-23] MEDS: PANTOPRAZOLE 20MG TABLET PO SCH (07:47)
[2018-03-23 07:53] VITALS: BP 167/70
[2018-03-23] MEDS: DOXYCYCLINE 100MG TABLET PO SCH ×2 (09:16→20:48)
[2018-03-23] MEDS: metFORMIN 500 MG TABLET PO SCH ×2 (09:16→17:50)
[2018-03-23] MEDS: QUETIAPINE 25MG TABLET PO SCH ×2 (09:17→20:46)
[2018-03-23] MEDS: CLOPIDOGREL 75 MG TABLET PO SCH (09:18)
[2018-03-23] MEDS: LACTOBACILLUS 1GM/ PACKET PO SCH ×3 (09:18→20:47)
[2018-03-23] MEDS: CHOLESTYRAMINE LIGHT 4GM PACKET PO SCH ×3 (09:18→20:52)
[2018-03-23] MEDS: SODIUM CHLORIDE FLUSH 10ML SYR IVF SCH ×2 (09:19→21:15)
[2018-03-23] MEDS: HEPARIN 5,000 UNITS/ML, 1ML SQ SCH ×2 (11:43→21:17)
[2018-03-23] MEDS: LEVOFLOXACIN 250 MG TABLET PO SCH (14:30)
[2018-03-23 17:46] LABS: CULTURE INDICATED? YES; MICROSCOPIC INDICATED
[2018-03-23] MEDS: ATORVASTATIN 10 MG TABLET PO SCH (20:50)
[2018-03-24] MEDS: INSULIN REGULAR 100 UNITS/ML, 3ML VIAL SQ-INSULIN SCH ×4 (07:00→21:00)
[2018-03-24 08:00] VITALS: BP 90/53
[2018-03-24] MEDS: SODIUM CHLORIDE FLUSH 10ML SYR IVF SCH ×2 (09:35→21:00)
[2018-03-24] MEDS: metFORMIN 500 MG TABLET PO SCH ×2 (09:52→17:43)
[2018-03-24] MEDS: PANTOPRAZOLE 20MG TABLET PO SCH (09:52)
[2018-03-24] MEDS: CLOPIDOGREL 75 MG TABLET PO SCH (09:52)
[2018-03-24] MEDS: DOXYCYCLINE 100MG TABLET PO SCH ×2 (09:52→20:38)
[2018-03-24] MEDS: LACTOBACILLUS 1GM/ PACKET PO SCH ×3 (10:05→20:37)
[2018-03-24] MEDS: CHOLESTYRAMINE LIGHT 4GM PACKET PO SCH ×4 (10:05→21:00)
[2018-03-24] MEDS: HEPARIN 5,000 UNITS/ML, 1ML SQ SCH ×4 (11:57→23:18)
[2018-03-24] MEDS: LEVOFLOXACIN 250 MG TABLET PO SCH (16:31)
[2018-03-24 19:51] VITALS: BP 102/80
[2018-03-24] MEDS: ATORVASTATIN 10 MG TABLET PO SCH (20:37)
[2018-03-24] MEDS: QUETIAPINE 25MG TABLET PO SCH (20:38)
[2018-03-25] MEDS: INSULIN REGULAR 100 UNITS/ML, 3ML VIAL SQ-INSULIN SCH ×4 (06:01→21:00)
[2018-03-25] MEDS: PANTOPRAZOLE 20MG TABLET PO SCH (07:37)
[2018-03-25 07:59] VITALS: BP 114/69
[2018-03-25] MEDS: LACTOBACILLUS 1GM/ PACKET PO SCH ×3 (09:00→20:38)
[2018-03-25] MEDS: CHOLESTYRAMINE LIGHT 4GM PACKET PO SCH ×3 (09:00→20:53)
[2018-03-25] MEDS: SODIUM CHLORIDE FLUSH 10ML SYR IVF SCH ×2 (09:00→21:00)
[2018-03-25] MEDS: CLOPIDOGREL 75 MG TABLET PO SCH (09:21)
[2018-03-25] MEDS: DOXYCYCLINE 100MG TABLET PO SCH ×2 (09:21→20:39)
[2018-03-25] MEDS: metFORMIN 500 MG TABLET PO SCH ×2 (09:21→17:24)
[2018-03-25 19:44] VITALS: BP 119/70
[2018-03-25] MEDS: ATORVASTATIN 10 MG TABLET PO SCH (20:39)
[2018-03-25] MEDS: QUETIAPINE 25MG TABLET PO SCH (20:44)
[2018-03-25] MEDS: HEPARIN 5,000 UNITS/ML, 1ML SQ SCH (23:00)
[2018-03-26] MEDS: INSULIN REGULAR 100 UNITS/ML, 3ML VIAL SQ-INSULIN SCH ×4 (05:36→20:30)
[2018-03-26 07:50] VITALS: BP 101/58
[2018-03-26] MEDS: PANTOPRAZOLE 20MG TABLET PO SCH (07:53)
[2018-03-26] MEDS: SODIUM CHLORIDE FLUSH 10ML SYR IVF SCH ×2 (09:00→21:00)
[2018-03-26] MEDS: CHOLESTYRAMINE LIGHT 4GM PACKET PO SCH ×3 (09:00→20:30)
[2018-03-26] MEDS: metFORMIN 500 MG TABLET PO SCH ×2 (09:48→18:02)
[2018-03-26] MEDS: DOXYCYCLINE 100MG TABLET PO SCH ×2 (09:48→20:29)
[2018-03-26] MEDS: CLOPIDOGREL 75 MG TABLET PO SCH (09:49)
[2018-03-26] MEDS: LACTOBACILLUS 1GM/ PACKET PO SCH ×3 (09:49→20:30)
[2018-03-26] MEDS: HEPARIN 5,000 UNITS/ML, 1ML SQ SCH ×2 (12:44→23:00)
[2018-03-26 16:00] VITALS: BP 109/56
[2018-03-26 19:49] VITALS: BP 93/51
[2018-03-26 20:01] LABS: BASOPHILS # (AUTO) 0.03 x10^3/uL (0-0.1); BASOPHILS % (AUTO) 0 % (0-1); EOSINOPHILS # (AUTO) 0.05 x10^3/uL (0-0.4); EOSINOPHILS % (AUTO) 1 % (1-7); LYMPHOCYTES # (AUTO) 1.95 x10^3/uL (1-3.4); LYMPHOCYTES % (AUTO) 19 % (22-44); MD NO; MEAN CORPUSCULAR HEMOGLOBIN 31.5 pg (27.0-34.8); MEAN CORPUSCULAR HGB CONC 33.9 g/dL (32.4-35.8); MEAN CORPUSCULAR VOLUME 92.8 fL (80-100); MEAN PLATELET VOLUME 10.8 fL (7.4-10.4); MONOCYTES % (AUTO) 6 % (2-9); NEUTROPHILS # (AUTO) 7.69 x10^3/uL (1.8-6.8); NEUTROPHILS % (AUTO) 74 % (42-75); PLATELET COUNT 129 x10^3/uL (130-400); RED BLOOD COUNT 3.96 x10^6/uL (3.82-5.3); RED CELL DISTRIBUTION WIDTH 14.1 % (9.6-15.2)
[2018-03-26 20:06] LABS: ANION GAP 7 mmol/L (5-15); CALCIUM 9.6 mg/dL (8.5-10.1); CHLORIDE 104 mmol/L (98-107); CREATININE 0.86 mg/dL (0.55-1.02)
[2018-03-26] MEDS: ATORVASTATIN 10 MG TABLET PO SCH (20:22)
[2018-03-26] MEDS: QUETIAPINE 25MG TABLET PO SCH (20:29)
[2018-03-27] MEDS: INSULIN REGULAR 100 UNITS/ML, 3ML VIAL SQ-INSULIN SCH ×4 (05:36→21:00)
[2018-03-27] MEDS: metFORMIN 500 MG TABLET PO SCH ×2 (07:40→17:30)
[2018-03-27] MEDS: PANTOPRAZOLE 20MG TABLET PO SCH (07:40)
[2018-03-27 07:51] VITALS: BP 106/58
[2018-03-27] MEDS: DOXYCYCLINE 100MG TABLET PO SCH (08:40)
[2018-03-27] MEDS: CLOPIDOGREL 75 MG TABLET PO SCH (08:40)
[2018-03-27] MEDS: LACTOBACILLUS 1GM/ PACKET PO SCH ×3 (09:00→21:00)
[2018-03-27] MEDS: CHOLESTYRAMINE LIGHT 4GM PACKET PO SCH ×3 (09:00→21:00)
[2018-03-27] MEDS: SODIUM CHLORIDE FLUSH 10ML SYR IVF SCH ×2 (09:10→21:00)
[2018-03-27] MEDS: HEPARIN 5,000 UNITS/ML, 1ML SQ SCH ×2 (11:38→23:00)
[2018-03-27 19:55] VITALS: BP 139/67
[2018-03-27] MEDS: ATORVASTATIN 10 MG TABLET PO SCH (20:56)
[2018-03-27] MEDS: QUETIAPINE 25MG TABLET PO SCH (20:56)
[2018-03-28] MEDS: INSULIN REGULAR 100 UNITS/ML, 3ML VIAL SQ-INSULIN SCH ×4 (05:44→20:13)
[2018-03-28 07:34] VITALS: BP 85/42
[2018-03-28] MEDS: PANTOPRAZOLE 20MG TABLET PO SCH (07:48)
[2018-03-28] MEDS: metFORMIN 500 MG TABLET PO SCH ×2 (07:48→17:47)
[2018-03-28 08:00] VITALS: BP 100/51
[2018-03-28] MEDS: LACTOBACILLUS 1GM/ PACKET PO SCH ×3 (08:15→20:12)
[2018-03-28] MEDS: SODIUM CHLORIDE FLUSH 10ML SYR IVF SCH (08:15)
[2018-03-28] MEDS: CHOLESTYRAMINE LIGHT 4GM PACKET PO SCH ×3 (08:15→20:06)
[2018-03-28] MEDS: CLOPIDOGREL 75 MG TABLET PO SCH (08:16)
[2018-03-28] MEDS: HEPARIN 5,000 UNITS/ML, 1ML SQ SCH ×2 (11:38→23:00)
[2018-03-28 19:53] VITALS: BP 119/60
[2018-03-28] MEDS: ATORVASTATIN 10 MG TABLET PO SCH ×2 (20:06→21:00)
[2018-03-28] MEDS: QUETIAPINE 25MG TABLET PO SCH ×3 (20:06→20:16)
[2018-03-29] MEDS: QUETIAPINE 25MG TABLET PO SCH ×2 (00:20→21:16)
[2018-03-29] MEDS: INSULIN REGULAR 100 UNITS/ML, 3ML VIAL SQ-INSULIN SCH ×4 (07:36→20:59)
[2018-03-29 07:45] VITALS: BP 72/41
[2018-03-29] MEDS: metFORMIN 500 MG TABLET PO SCH ×2 (08:15→16:34)
[2018-03-29] MEDS: PANTOPRAZOLE 20MG TABLET PO SCH (08:16)
[2018-03-29] MEDS: CLOPIDOGREL 75 MG TABLET PO SCH (08:16)
[2018-03-29] MEDS: LACTOBACILLUS 1GM/ PACKET PO SCH ×3 (08:21→21:00)
[2018-03-29] MEDS: CHOLESTYRAMINE LIGHT 4GM PACKET PO SCH ×3 (08:26→21:05)
[2018-03-29 08:33] VITALS: BP 103/61
[2018-03-29] MEDS: HEPARIN 5,000 UNITS/ML, 1ML SQ SCH ×2 (11:45→21:00)
[2018-03-29 19:56] VITALS: BP 101/69
[2018-03-29] MEDS: ATORVASTATIN 10 MG TABLET PO SCH ×2 (21:05→21:16)
[2018-03-30] MEDS: INSULIN REGULAR 100 UNITS/ML, 3ML VIAL SQ-INSULIN SCH ×4 (07:00→19:53)
[2018-03-30 07:04] VITALS: BP 118/68
[2018-03-30] MEDS: PANTOPRAZOLE 20MG TABLET PO SCH (07:39)
[2018-03-30] MEDS: CLOPIDOGREL 75 MG TABLET PO SCH (07:39)
[2018-03-30] MEDS: metFORMIN 500 MG TABLET PO SCH ×2 (07:39→17:54)
[2018-03-30] MEDS: LACTOBACILLUS 1GM/ PACKET PO SCH ×3 (08:00→20:09)
[2018-03-30] MEDS: CHOLESTYRAMINE LIGHT 4GM PACKET PO SCH ×3 (08:00→20:10)
[2018-03-30] MEDS: HEPARIN 5,000 UNITS/ML, 1ML SQ SCH ×2 (11:57→19:52)
[2018-03-30 19:53] VITALS: BP 99/56
[2018-03-30] MEDS: QUETIAPINE 25MG TABLET PO SCH (20:13)
[2018-03-30] MEDS: ATORVASTATIN 10 MG TABLET PO SCH (20:14)
[2018-03-31] MEDS: INSULIN REGULAR 100 UNITS/ML, 3ML VIAL SQ-INSULIN SCH ×4 (07:00→21:00)
[2018-03-31] MEDS: PANTOPRAZOLE 20MG TABLET PO SCH (07:30)
[2018-03-31 07:45] VITALS: BP 111/64
[2018-03-31] MEDS: metFORMIN 500 MG TABLET PO SCH ×2 (07:47→17:27)
[2018-03-31] MEDS: CLOPIDOGREL 75 MG TABLET PO SCH (09:00)
[2018-03-31] MEDS: CHOLESTYRAMINE LIGHT 4GM PACKET PO SCH ×3 (10:08→20:59)
[2018-03-31] MEDS: LACTOBACILLUS 1GM/ PACKET PO SCH ×3 (10:08→20:59)
[2018-03-31] MEDS: HEPARIN 5,000 UNITS/ML, 1ML SQ SCH ×2 (11:00→23:00)
[2018-03-31 20:00] VITALS: BP 121/49
[2018-03-31] MEDS: ATORVASTATIN 10 MG TABLET PO SCH (20:59)
[2018-03-31] MEDS: QUETIAPINE 25MG TABLET PO SCH (20:59)
[2018-04-01] MEDS: INSULIN REGULAR 100 UNITS/ML, 3ML VIAL SQ-INSULIN SCH ×3 (07:00→16:00)
[2018-04-01] MEDS: PANTOPRAZOLE 20MG TABLET PO SCH (07:35)
[2018-04-01 07:44] VITALS: BP 96/63
[2018-04-01] MEDS: metFORMIN 500 MG TABLET PO SCH ×2 (08:32→16:46)
[2018-04-01] MEDS: CHOLESTYRAMINE LIGHT 4GM PACKET PO SCH ×3 (08:32→21:01)
[2018-04-01] MEDS: LACTOBACILLUS 1GM/ PACKET PO SCH ×3 (08:32→20:59)
[2018-04-01] MEDS: CLOPIDOGREL 75 MG TABLET PO SCH (08:32)
[2018-04-01] MEDS: HEPARIN 5,000 UNITS/ML, 1ML SQ SCH (11:00)
[2018-04-01 19:55] VITALS: BP 106/61
[2018-04-01] MEDS: ATORVASTATIN 10 MG TABLET PO SCH (21:01)
[2018-04-01] MEDS: QUETIAPINE 25MG TABLET PO SCH (21:01)
[2018-04-02] MEDS: metFORMIN 500 MG TABLET PO SCH ×2 (07:31→16:49)
[2018-04-02] MEDS: CLOPIDOGREL 75 MG TABLET PO SCH (07:31)
[2018-04-02] MEDS: PANTOPRAZOLE 20MG TABLET PO SCH (07:31)
[2018-04-02] MEDS: LACTOBACILLUS 1GM/ PACKET PO SCH ×3 (07:32→23:44)
[2018-04-02] MEDS: CHOLESTYRAMINE LIGHT 4GM PACKET PO SCH ×3 (07:33→23:44)
[2018-04-02 08:08] VITALS: BP 105/63
[2018-04-02 19:39] VITALS: BP 110/62
[2018-04-02] MEDS: ATORVASTATIN 10 MG TABLET PO SCH (21:00)
[2018-04-02] MEDS: QUETIAPINE 25MG TABLET PO SCH (21:00)
[2018-04-03] MEDS: PANTOPRAZOLE 20MG TABLET PO SCH (07:29)
[2018-04-03] MEDS: metFORMIN 500 MG TABLET PO SCH ×2 (07:29→16:52)
[2018-04-03] MEDS: CHOLESTYRAMINE LIGHT 4GM PACKET PO SCH ×3 (07:30→21:00)
[2018-04-03] MEDS: CLOPIDOGREL 75 MG TABLET PO SCH (07:30)
[2018-04-03] MEDS: LACTOBACILLUS 1GM/ PACKET PO SCH ×3 (07:30→21:00)
[2018-04-03 07:57] VITALS: BP 104/66
[2018-04-03] MEDS ORDERED: CLOP75TA PO (13:13)
[2018-04-03] MEDS ORDERED: ATOR10TA9 PO (13:13)
[2018-04-03] MEDS ORDERED: CHOL239. PO (13:13)
[2018-04-03] MEDS ORDERED: METF500T PO (13:13)
[2018-04-03] MEDS ORDERED: QUET25TA PO (13:13)
[2018-04-03] MEDS ORDERED: PANT20TA3 PO (13:13)
[2018-04-03] MEDS ORDERED: ACID1GRA3 PO (13:13)
[2018-04-03 19:40] VITALS: BP 126/80
[2018-04-03] MEDS: ATORVASTATIN 10 MG TABLET PO SCH (21:00)
[2018-04-03] MEDS: QUETIAPINE 25MG TABLET PO SCH (21:00)
[2018-04-04] MEDS: CLOPIDOGREL 75 MG TABLET PO SCH (07:28)
[2018-04-04] MEDS: LACTOBACILLUS 1GM/ PACKET PO SCH (07:28)
[2018-04-04] MEDS: CHOLESTYRAMINE LIGHT 4GM PACKET PO SCH (07:28)
[2018-04-04] MEDS: PANTOPRAZOLE 20MG TABLET PO SCH (07:28)
[2018-04-04] MEDS: metFORMIN 500 MG TABLET PO SCH (07:28)
[2018-04-04 07:55] VITALS: BP 155/67
== END 2018-04-04 10:55 | DRG 57 ==
LOC: 3E 03-22 09:37 → INTOOBSV 03-22 09:37 → 3E 03-22 13:52 → OBSVTOIN 03-22 15:53 → 3E 03-22 16:30
PROVIDERS: ADMIT Psychiatry & Neurology Psychosomatic Medicine; ATTEND Psychiatry & Neurology Psychosomatic Medicine
DX: G30.9 Alzheimer's disease, unspecified (principal); B19.10 Unspecified viral hepatitis B without hepatic coma; L03.115 Cellulitis of right lower limb; L03.116 Cellulitis of left lower limb; N39.0 Urinary tract infection, site not specified; F01.51 Vascular dementia, unspecified severity, with behavioral disturbance; K74.69 Other cirrhosis of liver; I69.334 Monoplegia of upper limb following cerebral infarction affecting left non-dominant side; I44.7 Left bundle-branch block, unspecified; E11.9 Type 2 diabetes mellitus without complications; E78.5 Hyperlipidemia, unspecified; I10 Essential (primary) hypertension; K21.9 Gastro-esophageal reflux disease without esophagitis; K52.9 Noninfective gastroenteritis and colitis, unspecified; Z66 Do not resuscitate; Z79.02 Long term (current) use of antithrombotics/antiplatelets; Z79.899 Other long term (current) drug therapy; Z79.84 Long term (current) use of oral hypoglycemic drugs; Z85.42 Personal history of malignant neoplasm of other parts of uterus; Z90.11 Acquired absence of right breast and nipple; Z90.710 Acquired absence of both cervix and uterus; Z85.3 Personal history of malignant neoplasm of breast; Z90.49 Acquired absence of other specified parts of digestive tract; Z88.8 Allergy status to other drugs, medicaments and biological substances
CPT/HCPCS: 36415; 80048; 80061; 81001; 82140; 82607; 82746; 82962; 84439; 84443; 85025; 86592; 87086; 87106; 93005; G0378; J1644; J1815; 92523-GN; G0515-GN